=== PATIENT | female | born 1990 | race Caucasian/White ===

== ENCOUNTER 2021-10-26 14:33 | Observation (INO) | payer MEDICAID ==
[~2021-10-26] VITALS: Ht 157.5 cm; Wt 53.1 kg
[2021-10-26 14:33] VITALS: BP_SYST 117
[2021-10-26] MEDS ORDERED: NACL 0.9% 1,000 ML IV ONE ×2 (14:45→16:45)
[2021-10-26] MEDS ORDERED: ONDANSETRON HCL 4 MG/2 ML VIAL ONE (15:11)
[2021-10-26] MEDS ORDERED: ONDANSETRON HCL 4 MG/2 ML VIAL IVP ONE (15:15)
[2021-10-26 15:24] LABS: BASOPHILS # (AUTO) 0.1 K/uL (0.0-0.2); BASOPHILS % (AUTO) 0.7 % (0.0-2.0); EOSINOPHILS # (AUTO) 0.2 K/uL (0.0-0.4); EOSINOPHILS % (AUTO) 1.8 % (0.0-4.0); HEMATOCRIT 28.6 % (36-48); LYMPHOCYTES # (AUTO) 2.7 K/uL (1.0-5.5); LYMPHOCYTES % (AUTO) 26.1 % (20.5-51.5); MEAN CORPUSCULAR HEMOGLOBIN 23 pg (27-31); MEAN CORPUSCULAR HGB CONC 32 % (32-36); MEAN CORPUSCULAR VOLUME 73 fL (79.0-98.0); MONOCYTES # (AUTO) 0.6 K/uL (0.0-1.0); MONOCYTES % (AUTO) 6.2 % (1.7-9.3); NEUTROPHILS # (AUTO) 6.6 K/uL (1.8-7.7); NEUTROPHILS % (AUTO) 65.2 % (40.0-70.0); PLATELET COUNT (AUTO) 461 K/uL (130-430); RED BLOOD CELL COUNT(AUTO) 3.92 MIL/uL (4.2-6.2); WHITE BLOOD COUNT (AUTO) 10.2 K/uL (4.8-10.8)
[2021-10-26 16:56] LABS: CALCIUM 8.8 mg/dL (8.4-11.0); POTASSIUM 3.5 mmol/L (3.5-5.1)
[2021-10-26 16:57] LABS: ALBUMIN 3.6 g/dL (3.4-4.8); CREATININE 0.83 mg/dL (0.55-1.30); TOTAL BILIRUBIN 0.3 mg/dL (0.0-1.0)
[2021-10-26] MEDS ORDERED: CLINDAMYCIN 900 mg/50mL D5W 50 ML IV ONE (17:37)
[2021-10-26] MEDS: CLINDAMYCIN 900 mg/50mL D5W 50 ML IV SCH (17:45)
[2021-10-26 18:45] VITALS: BP_SYST 100
[2021-10-26 19:33] LABS: BILIRUBIN,URINE NEGATIVE (NEGATIVE); BLOOD, URINE 2+ (NEGATIVE); CLARITY/URINE CLEAR (CLEAR); COLOR,URINE YELLOW (YELLOW); GLUCOSE,URINE NEGATIVE (NEGATIVE); KETONES,URINE 2+ (NEGATIVE); LEUKOCYTE ESTERASE ,URINE NEGATIVE (NEGATIVE); NITRITE, URINE NEGATIVE (NEGATIVE); PROTEIN URINE NEGATIVE (NEGATIVE); UROBILINOGEN,URINE 0.2 (0.2-1.0)
[2021-10-26 19:50] LABS: BACTERIA,URINE FEW /HPF (None Seen); MUCUS,URINE 1+ /LPF (None Seen); WBC,URINE 0-3 /HPF (0-3)
[2021-10-26] MEDS ORDERED: OXYCODONE/ACETAMINOPHEN 5-325 TABLET PO PRN (20:15)
[2021-10-26] MEDS ORDERED: MORPHINE 4 MG INJ. 4 MG/ML VIAL IVP PRN (20:15)
[2021-10-26 20:45] VITALS: BP_SYST 99
[2021-10-26] MEDS: NORMAL SALINE 5 ML DISP.SYRIN IVF SCH (21:25)
[2021-10-26 21:44] VITALS: BP_SYST 108
[2021-10-27 05:00] VITALS: BP_SYST 103
[2021-10-27] MEDS: CLINDAMYCIN 900 mg/50mL D5W 50 ML IV SCH (05:07)
[2021-10-27] MEDS: NORMAL SALINE 5 ML DISP.SYRIN IVF SCH (05:08)
[2021-10-27 07:21] LABS: BASOPHILS % (AUTO) 0.7 % (0.0-2.0); EOSINOPHILS # (AUTO) 0.2 K/uL (0.0-0.4); EOSINOPHILS % (AUTO) 3.4 % (0.0-4.0); LYMPHOCYTES # (AUTO) 1.7 K/uL (1.0-5.5); MEAN CORPUSCULAR HEMOGLOBIN 23 pg (27-31); MEAN CORPUSCULAR HGB CONC 31 % (32-36); MEAN CORPUSCULAR VOLUME 74 fL (79.0-98.0); MONOCYTES # (AUTO) 0.4 K/uL (0.0-1.0); MONOCYTES % (AUTO) 6.1 % (1.7-9.3); NEUTROPHILS # (AUTO) 3.9 K/uL (1.8-7.7); NEUTROPHILS % (AUTO) 62.8 % (40.0-70.0); PLATELET COUNT (AUTO) 272 K/uL (130-430); RED BLOOD CELL COUNT(AUTO) 2.87 MIL/uL (4.2-6.2); RED CELL DISTRIBUTION WIDTH 17.1 % (9.0-15.0); WHITE BLOOD COUNT (AUTO) 6.2 K/uL (4.8-10.8)
[2021-10-27 08:00] LABS: HEMATOCRIT 21.2 % (36-48); HEMOGLOBIN 6.6 g/dL (12.0-16.0)
[2021-10-27 08:24] VITALS: BP_SYST 91
[2021-10-27 10:14] VITALS: BP_SYST 91
== END 2021-10-27 11:13 | disposition home or self-care (01) ==
LOC: SED 14:33 → SMU 16:53
PROVIDERS: ADMIT Obstetrics & Gynecology; ATTEND Obstetrics & Gynecology
DX: N93.9 Abnormal uterine and vaginal bleeding, unspecified (principal); Z20.822 Contact with and (suspected) exposure to COVID-19; D50.0 Iron deficiency anemia secondary to blood loss (chronic); Z90.710 Acquired absence of both cervix and uterus; Z79.899 Other long term (current) drug therapy
CPT/HCPCS: 36415 ×2; 80053; 81000; 85025 ×2; 87040; 87426; 93005; 96361 ×2; 96365; 96366; 96374; 96375; 99285; G0378 ×2; J2270; J2405; J3490